=== PATIENT | male | born 2000 | race Two or more races ===

== ENCOUNTER 2019-06-08 16:25 | Emergency (ER) | payer OTHER ==
[~2019-06-08] VITALS: Ht 175.3 cm; Wt 65.8 kg
--- NOTE | 2019-06-08 16:40 | NUR ---
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 Patient AxO x 4, no s/s of acute distress. The cut is 3/4 inch on the tip of the finger. Patient wrapped the finger in gauze, no active bleeding.
[2019-06-08] MEDS ORDERED: Bacitracin Oint UD TOPIC ONE ×2 (17:00→18:49)
[2019-06-08] MEDS ORDERED: Lidocaine 2% MPF 5ml Vial INJ ONE (17:00)
--- NOTE | 2019-06-08 17:03 | NUR ---
ER DISCHARGE NOTE: Patient is cleared to be discharged per ERMD, pt is aox4, on room air, with stable vital signs. pt was given dc and prescription instructions, pt was able to verbalize understanding, pt id band aremoved. pt is able to ambulate with steady gait. pt took all belongings.
--- NOTE | 2019-06-08 17:06 | Emergency Room Report ---
History of Present Illness General Chief Complaint: Laceration Source: Patient Present Illness HPI 18-year-old male presents to the emergency department complaining of acute onset laceration to the left middle finger while at work. 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 Patient is not sure when his last tetanus vaccination was however he states he is not a fan of receiving shots. Patient denies pain at this time. He states he is right-hand dominant. Patient reports that he can feel and move the affected extremity normally. Patient denies taking blood thinning medications and he denies having a history of any blood dyscrasias. He denies paresthesias. No other aggravating or relieving factors at this time. Allergies: Coded Allergies: No Known Allergies (Unverified , 06/08/19) Patient History Past Medical History: see triage record Past Surgical History: none Pertinent Family History: none Reviewed Nursing Documentation: PMH: Agreed; PSxH: Agreed Nursing Documentation-PMH Past Medical History: No Stated History Review of Systems All Other Systems: negative except mentioned in HPI Physical Exam Vital Signs Date Time Temp Pulse Resp B/P (MAP) Pulse Ox O2 Delivery O2 Flow Rate FiO2 06/08/19 16:28 97.9 83 20 132/78 (96) 98 Room Air Sp02 EP Interpretation: reviewed, normal General Appearance: no apparent distress, alert, GCS 15, non-toxic Head: normocephalic, atraumatic Eyes: bilateral eye normal inspection, bilateral eye PERRL ENT: hearing grossly normal, normal voice Neck: full range of motion Respiratory: lungs clear, normal breath sounds, speaking full sentences Cardiovascular #1: regular rate, rhythm, normal capillary refill Musculoskeletal: normal range of motion, gait/station normal, non-tender Neurologic: alert, motor strength/tone normal, oriented x3, sensory intact, responsive, speech normal Psychiatric: judgement/insight normal Skin: laceration - distal LMF flap laceration approx 1 cm in length Lymphatic: no adenopathy Procedures Laceration/Wound Repair Laceration/Wound Repair : Consent: Verbal Wound Location: upper extremity - left middle finger Wound's Depth, Shape: flap Wound Length (cm): 1 Wound Explored: clean Irrigated w/ Saline (ccs): 500 Anesthesia: 1% Lidocaine Volume Anesthetic (ccs): 5 Wound Repaired With: sutures Suture Size/Type: 4:0 Number of Sutures: 4 Layer Closure?: No Sterile Dressing Applied?: Yes Splint Applied?: Yes - finger splint Type of Splint Applied: Finger Splint Sling Applied?: No Patient Tolerated: Well Complications: None Medical Decision Making PA Attestation Dr. Olmos Is my supervising Physician whom patient management has been discussed with. Diagnostic Impression: Primary Impression: Laceration ER Course 18-year-old male presents to the emergency department complaining of acute onset laceration to the left middle finger while at work. 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 Patient is not sure when his last tetanus vaccination was however he states he is not a fan of receiving shots. Patient denies pain at this time. He states he is right-hand dominant. Patient reports that he can feel and move the affected extremity normally. Patient denies taking blood thinning medications and he denies having a history of any blood dyscrasias. He denies paresthesias. No other aggravating or relieving factors at this time. Ddx considered but are not limited to laceration, tendon injury, cellulitis, amputation Vital signs: are WNL, pt. is afebrile H&PE are most consistent with: distal LMF flap laceration approx 1 cm in length ORDERS: none required at this time, the diagnosis is clinical. ED INTERVENTIONS: -Tetanus vaccine was administered as pt. vaccination status was unknown. - The wound was copiously irrigated with normal saline, and explored for foreign body for which no FB was found. - pt. is anesthetized with 1%lidocaine without epi. - The wound was approximated and closed using 4 interrupted 4.0 Ethilon sutures. -Bacitracin and sterile dressing is applied. - Finger Splint applied to the LMF by medical technical writer. Pt. remains neurovascularly intact. Discussed with patient: That we make every effort to approximate the laceration as best as we can so that scarring will be as cosmetically pleasing as possible with our limited cosmetic skill set in the Emergency dept. Regardless of our best efforts there will be scarring after laceration repair. The extent of scarring is unknown at this time. DISCHARGE: At this time pt. is stable for d/c to home. Will provide printed patient care instructions, and any necessary prescriptions. Care plan and follow up instructions have been discussed with the patient prior to discharge. Last Vital Signs Date Time Temp Pulse Resp B/P (MAP) Pulse Ox O2 Delivery O2 Flow Rate FiO2 06/08/19 16:28 97.9 83 20 132/78 (96) 98 Room Air Disposition: HOME, SELF-CARE Condition: Stable Scripts No Active Prescriptions or Reported Meds Referrals: NOT CHOSEN IPA/MD,REFERRING (PCP) Departure Forms: Return to Work Return to Work Date: Jun 11, 2019 Work Restrictions: No Heavy Lifting Other Restrictions: Limited use of left hand. Keep hand covered and dry. Return to Full Activity: Jun 18, 2019 Patient Instructions: Laceration Care, Adult Additional Instructions: Take medications as directed. Sutures to Be Removed in 10 Days * Follow up with a Primary Care Provider in 3-5 days, even if your symptoms have resolved. Return sooner to ED if new symptoms occur, or current symptoms become worse. - Please note that this Emergency Department Report was dictated using [employer] technology software, occasionally this can lead to erroneous entry secondary to interpretation by the dictation equipment. Jolly Torres Jun 08, 2019 17:05
[2019-06-08] MEDS ORDERED: Tetanus/Diptheria/Pertussis IM ONE (17:15)
[2019-06-08 17:42] VITALS: BP 132/78
[2019-06-08] MEDS ORDERED: CEPHALEXIN500 MG ORAL (18:54)
[2019-06-08] MEDS ORDERED: BACITRACIN15 GM TOPIC (18:54)
[2019-06-08 19:03] VITALS: BP 132/78
== END 2019-06-08 19:03 | disposition home or self-care (01) ==
LOC: EMR 16:56
DX: S61.213A Laceration without foreign body of left middle finger without damage to nail, initial encounter (principal); Z23 Encounter for immunization; W26.0XXA Contact with knife, initial encounter; Y92.9 Unspecified place or not applicable
CPT/HCPCS: 90471; 90715; 99283

== ENCOUNTER 2019-06-17 07:04 | Emergency (ER) | payer OTHER ==
[~2019-06-17] VITALS: Ht 175.3 cm; Wt 66.2 kg
[~2019-06-17 07:04] MED LIST: BACITRACIN15 GM TOPIC; CEPHALEXIN500 MG ORAL
--- NOTE | 2019-06-17 07:11 | NUR ---
ED Nurse Note: Pt ambulated to ED d/t LT hand 3rd digit finger removal. Pt stated stitches was placed 10 days ago. Pt complains of pain with 5/10 scale. Pt is AOx4, cooperative, placed on bed. Dr. Olmos at bedside.
[2019-06-17 07:15] VITALS: BP 112/68
--- NOTE | 2019-06-17 07:20 | Emergency Room Report ---
History of Present Illness General Chief Complaint: Wound Recheck/Suture Removal Source: Patient Present Illness HPI 18-year-old male presents for suture removal of his left middle finger, he endorses minimal pain no aggravating relieving factors severity is mild patient presents for evaluation he cut his middle finger 9 days ago Allergies: Coded Allergies: No Known Allergies (Unverified , 06/08/19) Patient History Past Medical History: see triage record Reviewed Nursing Documentation: PMH: Agreed; PSxH: Agreed Nursing Documentation-PMH Past Medical History: No Stated History Review of Systems All Other Systems: negative except mentioned in HPI Physical Exam Vital Signs Date Time Temp Pulse Resp B/P (MAP) Pulse Ox O2 Delivery O2 Flow Rate FiO2 06/17/19 07:09 98.1 73 16 112/68 (83) 98 Room Air General Appearance: well appearing, no apparent distress Head: normocephalic, atraumatic ENT: hearing grossly normal, normal voice Neck: full range of motion, supple Respiratory: no respiratory distress, speaking full sentences Musculoskeletal: no calf tenderness Neurologic: alert, normal gait Psychiatric: mood/affect normal Skin: no rash, other - Sutures left middle finger four Procedures Additional Procedure Procedure Narrative Left middle finger: Area was prepped with alcohol swab, 4 sutures removed Medical Decision Making Diagnostic Impression: Primary Impression: Encounter for removal of sutures ER Course 18-year-old male presents for suture removal, patient is neurovascularly intact Patient tolerated suture well disposition home with return precautions follow- up with PCP Last Vital Signs Date Time Temp Pulse Resp B/P (MAP) Pulse Ox O2 Delivery O2 Flow Rate FiO2 06/17/19 07:15 98.1 77 16 112/68 98 Room Air Disposition: HOME, SELF-CARE Condition: Stable Referrals: [facility] Patient Instructions: Suture Removal, Care After Additional Instructions: The patient was provided with discharge instructions, notified to follow-up with a primary care doctor and or specialist in the next 24-48 hours, and to return to the ED if they have worsening of their symptoms. Please note that this report is being documented using [employer] technology. This can lead to erroneous entry secondary to incorrect interpretation by the dictating instrument. Nicanor Olmos MD Jun 17, 2019 07:20
[2019-06-17 07:24] VITALS: BP 114/70
--- NOTE | 2019-06-17 07:24 | NUR ---
ER DISCHARGE NOTE: Patient is cleared to be discharged per ERMD, pt is aox4, on room air, with stable vital signs. pt was given dc and prescription instructions, pt was able to verbalize understanding, pt id band removed. pt is able to ambulate with steady gait. pt took all belongings.
== END 2019-06-17 07:24 | disposition home or self-care (01) ==
LOC: EMR 07:20
DX: Z48.02 Encounter for removal of sutures (principal)
CPT/HCPCS: 99281